=== PATIENT | female | born 1935 | race Caucasian/White ===

== ENCOUNTER 2021-02-09 14:15 | Inpatient (IN) | payer OTHER ==
[2021-02-09] MEDS ORDERED: PANTOPRAZOLE SODIUM 40 MG VIAL IVPUSH ONE (16:05)
[2021-02-09] MEDS ORDERED: PANTOPRAZOLE SODIUM 40 MG VIAL ONE (16:38)
[2021-02-09 16:46] LABS: MCH 26.3 pg (25.7-33.7); MCHC 32.4 g/dl (32.0-36.0); MEAN PLT VOLUME 7.7 fl (7.5-11.1); PLATELET COUNT 201 K/MM3 (134-434); RBC 2.84 M/mm3 (3.60-5.2); RDW 14.7 % (11.6-15.6); WHITE BLOOD COUNT 8.9 K/mm3 (4.0-10.8)
[2021-02-09 16:51] LABS: HEMOGLOBIN 7.4 GM/dl (10.7-15.3)
[2021-02-09 17:10] LABS: ACTIVATED PTT 18.9 SECONDS (25.2-36.5)
[2021-02-09 17:15] LABS: INR 1.16 (0.82-1.09); PROTHROMBIN TIME (PATIENT) 12.9 SEC (10.2-13.0)
[2021-02-09 17:22] LABS: GLUCOSE,RANDOM 95 mg/dl (74-106)
[2021-02-09 17:23] LABS: ALBUMIN 3.5 g/dl (3.4-5.0); ALK PHOS 63 U/L (45-117); ANION GAP 13 MMOL/L (8-16); BILIRUBIN,DIRECT 0.2 mg/dL (0.0-0.2); BILIRUBIN,TOTAL 0.7 mg/dl (0.2-1); CALCIUM 8.9 mg/dl (8.5-10); CHLORIDE 97 mmol/L (98-107); CO2 25 mmol/L (21-32); CREATININE 1.5 mg/dl (0.55-1.3); LDH 274 U/L (84-246); SGOT/AST 23 U/L (15-37); SGPT/ALT 9 U/L (13-61); SODIUM 135 mmol/L (136-145); TOT PROT 6.2 g/dl (6.4-8.2)
[2021-02-09 17:53] LABS: IRON SERUM 131 ug/dL (50-175); TOTAL IRON BINDING CAPACITY 394 ug/dL (250-450)
[2021-02-09 18:20] LABS: RETICULOCYTES 5.02 % (0.5-1.5)
[2021-02-09] MEDS ORDERED: SODIUM CHLORIDE 1,000 ML IV ONE (19:34)
[2021-02-09 19:56] LABS: PLATELET ESTIMATE ADEQUATE
[2021-02-09 23:16] VITALS: BMI 36.6
[2021-02-10] MEDS ORDERED: DEXTROSE 5%-0.45% SALINE 1,000 ML IV SCH (03:15)
[2021-02-10 07:09] LABS: BASO % 1.2 % (0-2.0); EOS % 4.6 % (0-4.5); HEMATOCRIT 28.4 % (32.4-45.2); HEMOGLOBIN 9.1 GM/dl (10.7-15.3); MCHC 32.2 g/dl (32.0-36.0); MEAN CELL VOLUME 83.9 fl (80-96); MEAN PLT VOLUME 7.4 fl (7.5-11.1); MONO % 10.6 % (3.8-10.2); NEUT % 68.6 % (42.8-82.8); PLATELET COUNT 190 K/MM3 (134-434); RBC 3.38 M/mm3 (3.60-5.2); RDW 16.1 % (11.6-15.6); WHITE BLOOD COUNT 7.1 K/mm3 (4.0-10.8)
[2021-02-10 07:24] LABS: ALBUMIN 3.2 g/dl (3.4-5.0); BILIRUBIN,TOTAL 1.4 mg/dl (0.2-1); CALCIUM 8.5 mg/dl (8.5-10); CREATININE 1.4 mg/dl (0.55-1.3); TOT PROT 5.8 g/dl (6.4-8.2)
[2021-02-10] MEDS ORDERED: FUROSEMIDE 40 MG/4 ML INJECTABLE VIAL IVPUSH ONE (08:49)
[2021-02-10] MEDS ORDERED: NEBIVOLOL 10 MG TABLET (FP) ONE (08:58)
[2021-02-10] MEDS ORDERED: NEBIVOLOL 5 MG TABLET (FP) ONE (08:58)
[2021-02-10] MEDS ORDERED: LOSARTAN POTASSIUM 50 MG TABLET PO SCH (10:00)
[2021-02-10] MEDS ORDERED: NEBIVOLOL 10 MG TABLET (FP) PO SCH (10:00)
[2021-02-10] MEDS ORDERED: PANTOPRAZOLE SODIUM 40 MG VIAL IVPUSH SCH (10:00)
[2021-02-10] MEDS ORDERED: FUROSEMIDE 40 MG TABLET (FP) PO SCH (10:00)
[2021-02-10] MEDS ORDERED: HYDROCHLOROTHIAZIDE 12.5 MG CAPSULE (FP) PO SCH (10:00)
[2021-02-10] MEDS ORDERED: NEBIVOLOL PO SCH (10:00)
[2021-02-10] MEDS ORDERED: ESCITALOPRAM OXALATE 10 MG TABLET PO SCH (10:00)
[2021-02-10] MEDS ORDERED: PROPOFOL 20 ML ONE ×2 (13:19)
[2021-02-10] MEDS ORDERED: LIDOCAINE HCL/PF 2% SDV 5ML VIAL ONE (13:19)
[2021-02-10 14:26] LABS: HEMATOCRIT 29.2 % (32.4-45.2); HEMOGLOBIN 10.1 GM/dl (10.7-15.3); MCH 28.5 pg (25.7-33.7); MCHC 34.4 g/dl (32.0-36.0); MEAN CELL VOLUME 82.9 fl (80-96); MEAN PLT VOLUME 7.1 fl (7.5-11.1); PLATELET COUNT 205 K/MM3 (134-434); RBC 3.52 M/mm3 (3.60-5.2); RDW 15.4 % (11.6-15.6); WHITE BLOOD COUNT 7.5 K/mm3 (4.0-10.8)
[2021-02-10 15:43] VITALS: BP 140/70; PULSE 58; TEMP 97.8
[2021-02-10] MEDS ORDERED: TERAZOSIN HCL 5 MG CAPSULE PO SCH (22:00)
[2021-02-10] MEDS ORDERED: ROSUVASTATIN CA 20 MG TABLET (FP) PO SCH (22:00)
[2021-02-11] MEDS ORDERED: FUROSEMIDE 40 MG TABLET (FP) PO SCH (10:00)
== END 2021-02-10 17:00 | disposition home or self-care (01) | DRG 378 ==
LOC: FER 14:15 → FM/S 16:03
PROVIDERS: ADMIT Internal Medicine; ATTEND Nurse Practitioner Acute Care
PROC: 30233N1 Transfusion of Nonautologous Red Blood Cells into Peripheral Vein, Percutaneous Approach (ICD-10-PCS; principal; 2021-02-09)
PROC: 0DB68ZX Excision of Stomach, Via Natural or Artificial Opening Endoscopic, Diagnostic (ICD-10-PCS; 2021-02-10)
DX: K26.4 Chronic or unspecified duodenal ulcer with hemorrhage (principal); N17.9 Acute kidney failure, unspecified; I10 Essential (primary) hypertension; E78.5 Hyperlipidemia, unspecified; F32.9 Major depressive disorder, single episode, unspecified; D50.0 Iron deficiency anemia secondary to blood loss (chronic); E66.9 Obesity, unspecified; Z68.36 Body mass index [BMI] 36.0-36.9, adult; K29.70 Gastritis, unspecified, without bleeding
CPT/HCPCS: 36415; 36430; 71045-TC-FY; 80053; 82248; 82272; 82550; 82728; 83010; 83540; 83550; 83615; 84443; 84484; 85025; 85027; 85045; 85610; 85730; 86850; 86900; 86901; 86922; 88305-TC; 93005; 99285-25; C9803; P9058; U0003; U0005

== ENCOUNTER 2021-04-07 07:03 | Inpatient (IN) | payer OTHER ==
[2021-04-07] MEDS ORDERED: ONDANSETRON 4 MG/2 ML VIAL IVPUSH ONE ×2 (07:59→11:13)
[2021-04-07] MEDS ORDERED: ONDANSETRON 4 MG/2 ML VIAL ONE ×2 (08:14→11:15)
[2021-04-07 08:50] LABS: BASO % 0.8 % (0-2.0); EOS % 0.2 % (0-4.5); HEMATOCRIT 33.3 % (32.4-45.2); HEMOGLOBIN 10.6 GM/dL (10.7-15.3); LYMPH % 3.9 % (8-40); MCHC 31.9 g/dl (32.0-36.0); MEAN CELL VOLUME 84.5 fl (80-96); MEAN PLT VOLUME 7.3 fl (7.5-11.1); MONO % 8.7 % (3.8-10.2); NEUT % 86.4 % (42.8-82.8); PLATELET COUNT 279 K/MM3 (134-434); RBC 3.94 M/mm3 (3.60-5.2); RDW 22.7 % (11.6-15.6); WHITE BLOOD COUNT 11.4 K/mm3 (4.0-10.0)
[2021-04-07] MEDS ORDERED: SODIUM CHLORIDE 0.9% 500 ML INFUS.BAG IV ONE (08:58)
[2021-04-07 08:59] LABS: INR 1.26 (0.83-1.09); PROTHROMBIN TIME (PATIENT) 15.4 SEC (9.7-13.0)
[2021-04-07 09:01] LABS: ACTIVATED PTT 26.6 SECONDS (25.2-36.5)
[2021-04-07 09:14] LABS: CHLORIDE 96 mmol/L (98-107); SODIUM 131 mmol/L (136-145)
[2021-04-07 09:16] LABS: ALBUMIN 2.1 g/dl (3.4-5.0); CALCIUM 8.3 mg/dL (8.5-10.1)
[2021-04-07 09:17] LABS: CO2 19 mmol/L (21-32); GLUCOSE,RANDOM 86 mg/dL (74-106); LIPASE 215 U/L (73-393)
[2021-04-07 09:20] LABS: CREATININE 5.6 mg/dL (0.55-1.3); SGOT/AST 80 U/L (15-37); SGPT/ALT 17 U/L (13-61)
[2021-04-07 09:21] LABS: BILIRUBIN,TOTAL 1.2 mg/dL (0.2-1); TOT PROT 5.8 g/dl (6.4-8.2)
[2021-04-07 09:22] LABS: ALK PHOS 180 U/L (45-117)
[2021-04-07 10:01] LABS: ANION GAP 15 MMOL/L (8-16); BLOOD UREA NITROGEN 105.2 mg/dL (7-18)
[2021-04-07] MEDS ORDERED: INSULIN REGULAR HUMAN 100 UNITS/ML *VIAL IVPUSH ONE ×2 (10:12→14:54)
[2021-04-07] MEDS ORDERED: CALCIUM GLUCONATE 10% - 1,000 MG/10 ML VIAL IVPUSH ONE (10:12)
[2021-04-07] MEDS ORDERED: ALBUTEROL SO4 2.5/IPRATROPIUM 0.5 INH SOL 3 ML VIAL.NEB. NEB ONE ×2 (10:12→10:41)
[2021-04-07] MEDS ORDERED: DEXTROSE 50%-WATER - 25 GM/50 ML VIAL IVPUSH ONE (10:12)
[2021-04-07] MEDS ORDERED: SODIUM POLYSTYRENE SULFONATE 15 GM/60 ML BOTTLE PO ONE (10:12)
[2021-04-07] MEDS ORDERED: SODIUM ZIRCONIUM CYCLOSILICATE (LOKELMA) 5 GM PACKET PO SCH (10:15)
[2021-04-07] MEDS ORDERED: SODIUM POLYSTYRENE SULFONATE 15 GM/60 ML BOTTLE ONE (10:41)
[2021-04-07] MEDS ORDERED: CALCIUM GLUCONATE 10% - 1,000 MG/10 ML VIAL ONE (10:41)
[2021-04-07] MEDS ORDERED: DEXTROSE 50%-WATER - 25 GM/50 ML VIAL ONE ×2 (10:41→14:59)
[2021-04-07] MEDS ORDERED: INSULIN REGULAR HUMAN 100 UNITS/ML *VIAL ONE ×2 (10:43→15:01)
[2021-04-07 11:02] LABS: ANISOCYTOSIS 1+; MACROCYTOSIS 1+; OVALOCYTE 1+; PLATELET ESTIMATE NORMAL
[2021-04-07] MEDS ORDERED: PANTOPRAZOLE SODIUM 40 MG VIAL IVPUSH ONE (12:39)
[2021-04-07 13:43] LABS: EPI CELLS 6 /uL (0-25.1); HYALINE CASTS 0 /uL (0-3.1); URINE APPEARANCE CLOUDY; URINE BACTERIA 2 /uL (0-1359); URINE BILIRUBIN NEGATIVE (NEGATIVE); URINE COLOR YELLOW; URINE GLUCOSE (UA) NEGATIVE (NEGATIVE); URINE KETONE NEGATIVE (NEGATIVE); URINE LEUK ESTERASE NEGATIVE (NEGATIVE); URINE NITRITE NEGATIVE (NEGATIVE); URINE PROTEIN 1+ (NEGATIVE); URINE UROBILINOGEN 0.2 mg/dL (0.2-1.0); URINE WBC 14 /uL (0-25.8)
[2021-04-07 13:57] LABS: CHLORIDE 95 mmol/L (98-107); SODIUM 129 mmol/L (136-145)
[2021-04-07 13:58] LABS: CALCIUM 8.8 mg/dL (8.5-10.1)
[2021-04-07 13:59] LABS: ANION GAP 12 MMOL/L (8-16); CO2 22 mmol/L (21-32); GLUCOSE,RANDOM 271 mg/dL (74-106)
[2021-04-07 14:03] LABS: CREATININE 5.7 mg/dL (0.55-1.3)
[2021-04-07 14:04] LABS: BLOOD UREA NITROGEN 107.4 mg/dL (7-18)
[2021-04-07] MEDS ORDERED: PANTOPRAZOLE SODIUM 40 MG VIAL ONE (14:26)
[2021-04-07 14:34] LABS: URINE RBC 39 /uL (0-23.9)
[2021-04-07] MEDS ORDERED: SODIUM BICARBONATE 8.4% 50 MEQ/50 ML DISP.SYRIN IVPUSH ONE (14:55)
[2021-04-07] MEDS ORDERED: SODIUM BICARBONATE 8.4% 50 MEQ/50 ML VIAL ONE (14:59)
[2021-04-07 15:09] LABS: PHOSPHOROUS 5.6 mg/dL (2.5-4.9)
[2021-04-07] MEDS ORDERED: SODIUM CHLORIDE 1,000 ML IV SCH ×2 (15:15→18:00)
[2021-04-07] MEDS: DEXTROSE 50%-WATER - 25 GM/50 ML VIAL IVPUSH ONE (15:18)
[2021-04-07] MEDS ORDERED: oxyCODONE HCL 5 MG TABLET PO PRN ×2 (16:06→18:56)
[2021-04-07 17:36] VITALS: BMI 37.3
[2021-04-07] MEDS: SENNOSIDES 8.6MG TABLET (FP) PO SCH (22:52)
[2021-04-07] MEDS: MORPHINE SULFATE 2 MG/ML VIAL IVPUSH PRN (22:59)
[2021-04-07 23:10] LABS: CHLORIDE 99 mmol/L (98-107); SODIUM 133 mmol/L (136-145)
[2021-04-07 23:12] LABS: ANION GAP 13 MMOL/L (8-16); CALCIUM 8.1 mg/dL (8.5-10.1); CO2 21 mmol/L (21-32)
[2021-04-07 23:13] LABS: GLUCOSE,RANDOM 97 mg/dL (74-106)
[2021-04-07 23:16] LABS: CREATININE 5.7 mg/dL (0.55-1.3); PHOSPHOROUS 5.2 mg/dL (2.5-4.9)
[2021-04-08] MEDS ORDERED: DEXTROSE 50%-WATER 25 GM/50 ML DISP.SYRIN IVPUSH ONE (00:09)
[2021-04-08] MEDS ORDERED: ALBUTEROL SO4 2.5/IPRATROPIUM 0.5 INH SOL 3 ML VIAL.NEB. NEB ONE (00:09)
[2021-04-08] MEDS ORDERED: INSULIN (NOVOLOG) ASPART 100 UNITS/ML 10ML VIAL SQ ONE (00:09)
[2021-04-08] MEDS ORDERED: SODIUM ZIRCONIUM CYCLOSILICATE (LOKELMA) 5 GM PACKET PO ONE (00:10)
[2021-04-08] MEDS ORDERED: DEXTROSE 50%-WATER - 25 GM/50 ML VIAL ONE (06:21)
[2021-04-08] MEDS: DEXTROSE 50%-WATER - 25 GM/50 ML VIAL IVPUSH ONE (06:30)
[2021-04-08] MEDS: SODIUM ZIRCONIUM CYCLOSILICATE (LOKELMA) 5 GM PACKET PO SCH (09:51)
[2021-04-08] MEDS: ASPIRIN 81 MG CHEWABLE TABLETS PO SCH (09:51)
[2021-04-08] MEDS: ESCITALOPRAM OXALATE 10 MG TABLET PO SCH (09:51)
[2021-04-08] MEDS: SENNOSIDES 8.6MG TABLET (FP) PO SCH ×2 (09:51→22:06)
[2021-04-08] MEDS: SEVELAMER CARBONATE 800 MG TAB (FP) PO SCH ×3 (09:51→17:27)
[2021-04-08] MEDS: ENOXAPARIN NA (PORCINE) 30 MG/0.3 ML DISP.SYRIN SQ SCH (09:53)
[2021-04-08] MEDS ORDERED: DEXTROSE 50%-WATER - 25 GM/50 ML VIAL IVPUSH ONE ×2 (10:48→15:20)
[2021-04-08 12:57] LABS: BASO % 0.6 % (0-2.0); EOS % 0.7 % (0-4.5); HEMATOCRIT 30.5 % (32.4-45.2); HEMOGLOBIN 9.9 GM/dL (10.7-15.3); LYMPH % 4.4 % (8-40); MCH 27.9 pg (25.7-33.7); MCHC 32.5 g/dl (32.0-36.0); MEAN CELL VOLUME 85.8 fl (80-96); MEAN PLT VOLUME 7.3 fl (7.5-11.1); MONO % 8.8 % (3.8-10.2); NEUT % 85.5 % (42.8-82.8); PLATELET COUNT 126 K/MM3 (134-434); RBC 3.55 M/mm3 (3.60-5.2); RDW 23.5 % (11.6-15.6); WHITE BLOOD COUNT 10.9 K/mm3 (4.0-10.0)
[2021-04-08 13:18] LABS: CHLORIDE 101 mmol/L (98-107); SODIUM 133 mmol/L (136-145)
[2021-04-08 13:21] LABS: ALBUMIN 1.9 g/dl (3.4-5.0); CALCIUM 8.3 mg/dL (8.5-10.1); CO2 20 mmol/L (21-32); MAGNESIUM 3.3 mg/dL (1.8-2.4)
[2021-04-08 13:22] LABS: GLUCOSE,RANDOM 99 mg/dL (74-106)
[2021-04-08 13:24] LABS: SGOT/AST 77 U/L (15-37); SGPT/ALT 17 U/L (13-61)
[2021-04-08 13:25] LABS: CREATININE 6.1 mg/dL (0.55-1.3); PHOSPHOROUS 5.4 mg/dL (2.5-4.9)
[2021-04-08 13:26] LABS: BILIRUBIN,TOTAL 0.9 mg/dL (0.2-1); TOT PROT 5.1 g/dl (6.4-8.2)
[2021-04-08 13:27] LABS: ALK PHOS 186 U/L (45-117)
[2021-04-08 13:37] LABS: ANION GAP 12 MMOL/L (8-16)
[2021-04-08] MEDS: MORPHINE SULFATE 2 MG/ML VIAL IVPUSH PRN ×2 (14:34→22:04)
[2021-04-08] MEDS ORDERED: INSULIN REGULAR HUMAN 100 UNITS/ML *VIAL IVPUSH ONE (15:20)
[2021-04-08] MEDS ORDERED: SODIUM POLYSTYRENE SULFONATE 15 GM/60 ML BOTTLE RC ONE (15:26)
[2021-04-08] MEDS ORDERED: FUROSEMIDE 100 MG/10 ML INJECTABLE VIAL IVPB ONE (15:27)
[2021-04-08] MEDS: AMINO ACIDS 4.25%/D5W 1,000 ML IV SCH (16:51)
[2021-04-09] MEDS: MORPHINE SULFATE 2 MG/ML VIAL IVPUSH PRN (06:26)
[2021-04-09] MEDS: SEVELAMER CARBONATE 800 MG TAB (FP) PO SCH ×3 (08:18→17:31)
[2021-04-09 08:40] LABS: CHLORIDE 100 mmol/L (98-107); SODIUM 133 mmol/L (136-145)
[2021-04-09 08:42] LABS: ALBUMIN 1.8 g/dl (3.4-5.0)
[2021-04-09 08:43] LABS: ANION GAP 9 MMOL/L (8-16); CALCIUM 8.1 mg/dL (8.5-10.1); CO2 23 mmol/L (21-32); GLUCOSE,RANDOM 119 mg/dL (74-106)
[2021-04-09 08:46] LABS: CREATININE 6.8 mg/dL (0.55-1.3); SGOT/AST 76 U/L (15-37); SGPT/ALT 19 U/L (13-61)
[2021-04-09 08:47] LABS: BILIRUBIN,TOTAL 1.1 mg/dL (0.2-1); TOT PROT 5.3 g/dl (6.4-8.2)
[2021-04-09 08:48] LABS: ALK PHOS 199 U/L (45-117)
[2021-04-09] MEDS: ESCITALOPRAM OXALATE 10 MG TABLET PO SCH (10:19)
[2021-04-09] MEDS: SODIUM ZIRCONIUM CYCLOSILICATE (LOKELMA) 5 GM PACKET PO SCH (10:19)
[2021-04-09] MEDS: ASPIRIN 81 MG CHEWABLE TABLETS PO SCH (10:19)
[2021-04-09] MEDS: SENNOSIDES 8.6MG TABLET (FP) PO SCH ×2 (10:20→21:29)
[2021-04-09] MEDS: ENOXAPARIN NA (PORCINE) 30 MG/0.3 ML DISP.SYRIN SQ SCH (10:20)
[2021-04-09] MEDS ORDERED: SODIUM POLYSTYRENE SULFONATE 15 GM/60 ML BOTTLE RC ONE (12:11)
[2021-04-09] MEDS: AMINO ACIDS 4.25%/D5W 1,000 ML IV SCH (16:00)
[2021-04-09] MEDS: MORPHINE SULFATE 2 MG/ML VIAL IM PRN (16:01)
[2021-04-09 21:57] LABS: CHLORIDE 99 mmol/L (98-107); SODIUM 133 mmol/L (136-145)
[2021-04-09 21:59] LABS: CALCIUM 8.2 mg/dL (8.5-10.1)
[2021-04-09 22:00] LABS: CO2 22 mmol/L (21-32); GLUCOSE,RANDOM 104 mg/dL (74-106)
[2021-04-09 22:03] LABS: CREATININE 7.1 mg/dL (0.55-1.3)
[2021-04-09] MEDS: BACITRACIN 15 GM TUBE TOPICAL OINTMENT TP SCH (22:06)
[2021-04-09 22:08] LABS: ANION GAP 12 MMOL/L (8-16); BLOOD UREA NITROGEN 117.3 mg/dL (7-18)
[2021-04-10 08:28] LABS: HEMATOCRIT 31.3 % (32.4-45.2); MCH 27.5 pg (25.7-33.7); MCHC 31.9 g/dl (32.0-36.0); MEAN CELL VOLUME 86.1 fl (80-96); MEAN PLT VOLUME 7.9 fl (7.5-11.1); PLATELET COUNT 199 K/MM3 (134-434); RBC 3.64 M/mm3 (3.60-5.2); RDW 23.3 % (11.6-15.6); WHITE BLOOD COUNT 8.7 K/mm3 (4.0-10.0)
[2021-04-10 08:39] LABS: CHLORIDE 100 mmol/L (98-107); SODIUM 133 mmol/L (136-145)
[2021-04-10 08:41] LABS: GLUCOSE,RANDOM 93 mg/dL (74-106)
[2021-04-10 08:42] LABS: CALCIUM 8.1 mg/dL (8.5-10.1); CO2 21 mmol/L (21-32)
[2021-04-10 08:57] LABS: ANION GAP 12 MMOL/L (8-16); BLOOD UREA NITROGEN 124.4 mg/dL (7-18); CREATININE 7.4 mg/dL (0.55-1.3)
[2021-04-10] MEDS: ESCITALOPRAM OXALATE 10 MG TABLET PO SCH (09:40)
[2021-04-10] MEDS: ASPIRIN 81 MG CHEWABLE TABLETS PO SCH (09:40)
[2021-04-10] MEDS: SEVELAMER CARBONATE 800 MG TAB (FP) PO SCH ×2 (09:40→11:38)
[2021-04-10] MEDS: SODIUM ZIRCONIUM CYCLOSILICATE (LOKELMA) 5 GM PACKET PO SCH (09:40)
[2021-04-10] MEDS: FUROSEMIDE 100 MG/10 ML INJECTABLE VIAL IVPB SCH ×2 (09:40→11:37)
[2021-04-10] MEDS: SENNOSIDES 8.6MG TABLET (FP) PO SCH (09:41)
[2021-04-10] MEDS: BACITRACIN 15 GM TUBE TOPICAL OINTMENT TP SCH (10:03)
[2021-04-10] MEDS: ENOXAPARIN NA (PORCINE) 30 MG/0.3 ML DISP.SYRIN SQ SCH (10:04)
[2021-04-10] MEDS: MORPHINE SULFATE 2 MG/ML VIAL IM PRN ×2 (11:04→15:24)
[2021-04-10] MEDS: AMINO ACIDS 4.25%/D5W 1,000 ML IV SCH (15:11)
[2021-04-11] MEDS: MORPHINE SULFATE 2 MG/ML VIAL IM PRN ×6 (05:45→22:46)
[2021-04-11] MEDS: FUROSEMIDE 100 MG/10 ML INJECTABLE VIAL IVPB SCH (09:36)
[2021-04-11] MEDS ORDERED: SCOPOLAMINE HYDROBROMIDE 1 PATCH PATCH.TD72 TD SCH (11:45)
[2021-04-11 23:41] VITALS: BP 79/43; PULSE 85; TEMP 98.7
[2021-04-12] MEDS ORDERED: MORPHINE SULFATE 2 MG/ML VIAL IM PRN (08:09)
[2021-04-12] MEDS ORDERED: FUROSEMIDE 100 MG/10 ML INJECTABLE VIAL IVPB SCH (10:00)
== END 2021-04-12 00:27 | disposition expired | DRG 755 ==
LOC: JER 07:03 → JERBED 14:39 → J4W 16:44 → J7W 04-11 15:40
PROVIDERS: ADMIT Internal Medicine; ATTEND Internal Medicine
DX: C56.9 Malignant neoplasm of unspecified ovary (principal); N17.9 Acute kidney failure, unspecified; R18.8 Other ascites; K92.0 Hematemesis; N13.30 Unspecified hydronephrosis; J90 Pleural effusion, not elsewhere classified; E66.9 Obesity, unspecified; I10 Essential (primary) hypertension; E78.5 Hyperlipidemia, unspecified; E87.5 Hyperkalemia; D64.9 Anemia, unspecified; E86.0 Dehydration; R94.5 Abnormal results of liver function studies; R62.7 Adult failure to thrive; D72.829 Elevated white blood cell count, unspecified; D69.6 Thrombocytopenia, unspecified; E86.9 Volume depletion, unspecified; D63.1 Anemia in chronic kidney disease; I12.9 Hypertensive chronic kidney disease with stage 1 through stage 4 chronic kidney disease, or unspecified chronic kidney disease; N18.9 Chronic kidney disease, unspecified; F32.9 Major depressive disorder, single episode, unspecified; Z95.2 Presence of prosthetic heart valve; Z96.652 Presence of left artificial knee joint; Z68.37 Body mass index [BMI] 37.0-37.9, adult
CPT/HCPCS: 36415; 71045-TC-FY; 74176-TC; 80048; 80053; 81003; 82550; 83605; 83690; 83735; 84100; 84484; 85025; 85027; 85610; 85730; 86850; 86900; 86901; 87086; 93005; 93010; 99285-25; C9803; U0003; U0005